=== PATIENT | female | born 1995 | race Caucasian/White ===

== ENCOUNTER → 2016-08-21 | Outpatient (CLI) | payer BC | LOC: COL.RAD 14:45 | DX: M23.222 Derangement of posterior horn of medial meniscus due to old tear or injury, left knee (principal); M94.8X6 Other specified disorders of cartilage, lower leg; M25.562 Pain in left knee; Z98.890 Other specified postprocedural states ==

== ENCOUNTER 2023-05-10 06:06 | Inpatient (IN) | payer BC ==
[~2023-05-10] VITALS: Ht 165.1 cm; Wt 89.5 kg
[2023-05-10] VITALS (57 sets, daily range): BP systolic 92–138; BP diastolic 55–87; PULSE 69–109; TEMP 98.1–98.2
--- NOTE | 2023-05-10 06:20 | NUR ---
PT ON UNIT WITH SPOUSE, THIS RN IN ROOM. PT CHANGED INTO GOWN, COMFORTABLE IN BED. REPORTS POSITIVE MOVEMENT, NO LOF, NO CTX.
[2023-05-10] MEDS ORDERED: PRENATAL TABLET PO (06:55)
[2023-05-10] MEDS ORDERED: PRILOSEC 20MG20 MG PO (06:56)
[2023-05-10 07:34] LABS: BASO % 0.2 % (0.0-2.0); EOS % 0.5 % (0.0-4.0); GRAN # 6.3 K/mm3 (1.4-6.5); GRAN % 77.8 % (42.2-75.2); HEMATOCRIT 45.2 % (37.0-47.0); HEMOGLOBIN 15.4 g/dl (12.5-16.0); LYMPH % 12.2 % (20.0-51.0); MEAN CELL VOLUME 92 fl (80.0-100.0); MEAN CORPUSCULAR HEMOGLOBIN 31 pg (27-31); MEAN CORPUSCULAR HGB CONC 34 g/dl (33.0-37.0); MEAN PLATELET VOLUME 11.2 fl (7.4-10.4); MONO # 0.7 K/mm3 (0.1-0.6); MONO % 8.6 % (1.7-9.3); PLATELET COUNT 202 K/mm3 (130-400); RED BLOOD COUNT 4.92 M/mm3 (4.10-5.30)
--- NOTE | 2023-05-10 07:48 | NUR ---
0748 DR. HENLEY AT BEDSIDE. SVE /-3. 0749 AROM COMPLETE AND ATTEMPTED PLACING FSE DUE TO DIFFICULTY TRACING FHR. [address] 0754 JOEL MANZANARES, ATTEMPTING FSE PLACE. UNABLE TO PLACE DUE TO LARGE AMOUNT OF AMNIOTIC FLUID. PT TOLERATED WELL.
--- NOTE | 2023-05-10 08:50 | NUR ---
0850 PROLONGED DECELERATION NOTED ON EFM MONITOR. MATERNAL PULSE OX IN PLACE. 3 RNS AT BEDSIDE IMMEDIATELY. PITOCIN TURNED OFF, PT MOVED LL, 02 ON 10L, JOEL MANZANARES, IN ROOM AND PLACED FSE AT THIS TIME. SVE /-3, "HEAD APPLIED WELL TO CERVIX." PT TOLERATED WELL. VS STABLE. 0855 FHR RETURNED TO BASELINE OF 140. PITOCIN REMAINS OFF, O2 REMAINS ON AT 10L. VS STABLE.
--- NOTE | 2023-05-10 12:30 | NUR ---
1230 PT SITTING UPRIGHT ON BED, PULSE OX IN PLACE, BOLUS INFUSING. VS STABLE, EFM CAT 2. 1232 SINGLE SHOT ADMINISTERED PER KATY ABREU. PT TOLERATED WELL. EPIDURAL CATHETER PLACED. PT RETURNED TO WL POSITION. VS STABLE, EFM CAT 2.
--- NOTE | 2023-05-10 13:06 | NUR ---
1306 PROLONGED DECELERATION NOTED. 3 NURSES AT BEDSIDE. PITOCIN TURNED OFF, PT MOVED TO KNEE CHEST POSITION. 1309 DECELERATION RESOLVED. PT TOLERATED WELL. DR. HENLEY NOTIFIED. VS STABLE.
--- NOTE | 2023-05-10 15:26 | NUR ---
DR. HENLEY AT [facility] FOR SVE 4/?/?
--- NOTE | 2023-05-10 17:40 | NUR ---
MENENDEZ EMPTIED, PAD CHANGED, PT COMFORTABLE.
--- NOTE | 2023-05-10 21:31 | NUR ---
2100: PT POSITION RL WITH LLS. HEART RATE BEGAN DECELERATION. 2100: PT POSITIONED TO THE LL. LU WILLIAMSON RN ARRIVES IN ROOM. 2101: PT REPOSITIONED TO THE RL. HEART TONES DECREASING TO THE 80'S AT THIS TIME. PITOCIN STOPPED AT THIS TIME. 10L O2 VIA OXYMASK WAS PLACED ON PATIENT. JOEL WILLIAMSON PROVIDES SCALP STIM AND PERFORMS SVE. PT REMAINS UNCHANGED FROM SVE AT 1930. 2102: PT REPOSITIONED TO HANDS/KNEES, HEART TONES DECREASE TO 50'S. 2103: PHYSICIAN NOTIFIED OF CURRENT EPISODE, SEE PHYSICIAN NOTIFICATION. 2104: HEART TONES INCREASING AT THIS TIME. 2109: HEART TONES RETURN TO A NEW BASELINE OF 120. 2115: PT REPOSITIONED FROM HANDS/KNEES TO LEFT LATERAL WITH A PEANUT BALL. 2117: ARRIVES ON THE UNIT AND HAS A DISCUSSION WITH THE PATIENT REGARDING SECTION. QUESTIONS ASKED AND ANSWERED. 2119: THE PATIENT VERBALIZED UNDERSTANDING AND AGREES TO A C/S. DECISION MADE AT THIS TIME TO PROCEED. 2120: PT PREPPED FOR OR. 2130: PT TAKEN TO OR VIA BED.
[2023-05-11] VITALS (8 sets, daily range): BP systolic 122–127; BP diastolic 75–82; PULSE 66–79; TEMP 98–98.2
[2023-05-12 07:30] VITALS: BP 109/73; PULSE 69; TEMP 97.9
[2023-05-12] MEDS ORDERED: PERCOCET 325 MG1 TA2 PO (08:18)
[2023-05-12] MEDS ORDERED: MOTRIN 800800 MG/TAB PO (08:18)
--- NOTE | 2023-05-12 09:41 | NUR ---
Initial visit; Patient thanked Decorating Supervisor for offering Congratulations and God's blessings for the of her daughter. Decorating Supervisor thanked mom for choosing [facility].
[2023-05-12 16:30] VITALS: BP 118/69; PULSE 92
== END 2023-05-12 17:40 | disposition home or self-care (01) | DRG 788 ==
LOC: OB 06:06 → LDR 06:06 → OB 11:04
PROVIDERS: ADMIT Obstetrics & Gynecology
PROC: 10D00Z1 Extraction of Products of Conception, Low, Open Approach (ICD-10-PCS; principal; 2023-05-10)
DX: O32.3XX0 Maternal care for face, brow and chin presentation, not applicable or unspecified (principal); Z3A.39 39 weeks gestation of pregnancy; Z37.0 Single live birth; O24.420 Gestational diabetes mellitus in childbirth, diet controlled; O76 Abnormality in fetal heart rate and rhythm complicating labor and delivery; Z86.16 Personal history of COVID-19; Z23 Encounter for immunization
CPT/HCPCS: J0456; J0665; J0690; J1100; J1885; J2210; J2371; J2590; J2795; J7050; J7120